=== PATIENT | male | born 1975 | race Caucasian/White ===

== ENCOUNTER 2020-03-21 14:29 | Inpatient (IN) | payer SELFPAY ==
[~2020-03-21] VITALS: Ht 175.3 cm; Wt 115.7 kg
[2020-03-21 14:51] VITALS: Ht 175.3 cm; Wt 115.7 kg
[2020-03-21 16:20] LABS: CALCIUM 8.5 mg/dL (8.5-10.1); CARBON DIOXIDE 26.6 mmol/L (21-32); CREATININE SERUM 1.4 mg/dL (0.7-1.3); POTASSIUM SERUM 4.5 mmol/L (3.5-5.1)
[2020-03-21 16:25] LABS: BILIRUBIN TOTAL 1.2 mg/dL (0.20-1.00); TOTAL PROTEIN, SERUM 6.6 g/dL (6.4-8.2)
[2020-03-21 16:34] LABS: BASOPHIL % 0.5 % (0-2); PLATELET COUNT 317 x10^3mcL (130-400); RED CELL DISTRIBUTION WIDTH 15.5 % (11.5-14.5)
[2020-03-21 17:13] LABS: microscopic required? NO
[2020-03-21 17:39] LABS: UA SPECIFIC GRAVITY >=1.030 (1.005-1.035); urine erythrocyte NEGATIVE (NEGATIVE)
[2020-03-21 17:45] LABS: C REACTIVE PROTEIN 2.5 mg/dL (<=0.9)
[2020-03-21 20:57] LABS: MAGNESIUM 2.4 mg/dL (1.8-2.4); PHOSPHOROUS 4.5 mg/dL (2.5-4.9)
[2020-03-21 21:06] LABS: T3 TOTAL 1.21 ng/mL
[2020-03-21 21:07] LABS: FREE T4 1.44 ng/dL (0.76-1.46); FREE THYROXINE INDEX 3.7 ug/dL (1.4-4.5); T4(THYROXINE) 9.6 ug/dL (4.7-13.3)
[2020-03-21 23:56] VITALS: BP 143/60
[2020-03-22 06:22] VITALS: BP 137/83
[2020-03-22 07:04] LABS: CALCIUM 8.9 mg/dL (8.5-10.1); CARBON DIOXIDE 28.9 mmol/L (21-32); CREATININE SERUM 1.5 mg/dL (0.7-1.3); MAGNESIUM 2.3 mg/dL (1.8-2.4); PHOSPHOROUS 4.4 mg/dL (2.5-4.9); POTASSIUM SERUM 4.2 mmol/L (3.5-5.1)
[2020-03-22 07:30] LABS: BASOPHIL % 0.4 % (0-2); PLATELET COUNT 328 x10^3mcL (130-400); RED CELL DISTRIBUTION WIDTH 15.6 % (11.5-14.5)
[2020-03-22 08:09] LABS: ALBUMIN 3.2 g/dL (3.4-5.0); BILIRUBIN DIRECT 0.38 mg/dL (0.0-0.2); BILIRUBIN TOTAL 1.7 mg/dL (0.20-1.00); TOTAL PROTEIN, SERUM 6.8 g/dL (6.4-8.2)
[2020-03-22 08:33] VITALS: BP 165/82
[2020-03-22 12:26] VITALS: BP 104/71
[2020-03-22 17:16] VITALS: BP 155/66
[2020-03-22 20:15] VITALS: BP 153/76
[2020-03-23 06:09] VITALS: BP 136/76
[2020-03-23 08:02] LABS: BASOPHIL % 0.5 % (0-2); PLATELET COUNT 303 x10^3mcL (130-400)
[2020-03-23 08:51] LABS: CALCIUM 8.5 mg/dL (8.5-10.1); CARBON DIOXIDE 25.2 mmol/L (21-32); CHLORIDE SERUM 102 mmol/L (98-107); CREATININE SERUM 1.3 mg/dL (0.7-1.3); GFR1 > 60 mL/min; GLUCOSE SERUM 104 mg/dL (74-106); MAGNESIUM 2.2 mg/dL (1.8-2.4); POTASSIUM SERUM 3.9 mmol/L (3.5-5.1); SODIUM SERUM 138 mmol/L (136-145)
[2020-03-23 08:52] LABS: RED CELL DISTRIBUTION WIDTH 15.6 % (11.5-14.5)
[2020-03-23 09:54] VITALS: BP 110/65
[2020-03-23 12:38] VITALS: BP 136/70
[2020-03-23 17:30] VITALS: BP 155/69
[2020-03-23 20:45] VITALS: BP 143/64
[2020-03-24 03:59] LABS: BASOPHIL % 0.5 % (0-2); PLATELET COUNT 314 x10^3mcL (130-400); RED CELL DISTRIBUTION WIDTH 15.6 % (11.5-14.5)
[2020-03-24 04:14] LABS: CALCIUM 8.4 mg/dL (8.5-10.1); CARBON DIOXIDE 31.5 mmol/L (21-32); CHLORIDE SERUM 100 mmol/L (98-107); CREATININE SERUM 1.3 mg/dL (0.7-1.3); GFR1 > 60 mL/min; GLUCOSE SERUM 118 mg/dL (74-106); MAGNESIUM 2.3 mg/dL (1.8-2.4); PHOSPHOROUS 4.1 mg/dL (2.5-4.9); POTASSIUM SERUM 3.9 mmol/L (3.5-5.1); SODIUM SERUM 136 mmol/L (136-145)
[2020-03-24 06:05] VITALS: BP 112/67
[2020-03-24 08:52] VITALS: BP 145/70
[2020-03-24 17:29] VITALS: BP 126/62
[2020-03-24 22:10] VITALS: BP 125/65
[2020-03-25 06:23] LABS: CALCIUM 8.4 mg/dL (8.5-10.1); CARBON DIOXIDE 29.4 mmol/L (21-32); CHLORIDE SERUM 99 mmol/L (98-107); CREATININE SERUM 1.3 mg/dL (0.7-1.3); GFR1 > 60 mL/min; GLUCOSE SERUM 103 mg/dL (74-106); MAGNESIUM 2.3 mg/dL (1.8-2.4); PHOSPHOROUS 3.7 mg/dL (2.5-4.9); POTASSIUM SERUM 4.1 mmol/L (3.5-5.1); SODIUM SERUM 135 mmol/L (136-145)
[2020-03-25 08:14] VITALS: BP 137/65
[2020-03-25 11:12] LABS: BASOPHIL % 0.3 % (0-2); PLATELET COUNT 311 x10^3mcL (130-400)
[2020-03-25 13:21] VITALS: BP 124/68
[2020-03-25 17:10] VITALS: BP 133/60
[2020-03-25 20:26] VITALS: BP 145/70
[2020-03-26 05:43] VITALS: BP 110/58
[2020-03-26 08:11] LABS: CALCIUM 8.3 mg/dL (8.5-10.1); CARBON DIOXIDE 29.1 mmol/L (21-32); CHLORIDE SERUM 99 mmol/L (98-107); CREATININE SERUM 1.1 mg/dL (0.7-1.3); GFR1 > 60 mL/min; GLUCOSE SERUM 119 mg/dL (74-106); MAGNESIUM 2.4 mg/dL (1.8-2.4); PHOSPHOROUS 3.2 mg/dL (2.5-4.9); POTASSIUM SERUM 3.9 mmol/L (3.5-5.1); SODIUM SERUM 137 mmol/L (136-145)
[2020-03-26 08:35] LABS: BASOPHIL % 0.3 % (0-2); PLATELET COUNT 315 x10^3mcL (130-400)
[2020-03-26 09:00] VITALS: BP 127/69
[2020-03-26 09:06] LABS: RED CELL DISTRIBUTION WIDTH 16.3 % (11.5-14.5)
[2020-03-26] MEDS ORDERED: ZES5 PO (13:15)
[2020-03-26] MEDS ORDERED: LASIX40 MG PO ×2 (13:16→13:29)
[2020-03-26] MEDS ORDERED: ISO10 PO (13:17)
[2020-03-26] MEDS ORDERED: ADULT LOW DOSE81 MG PO ×2 (13:22→13:29)
[2020-03-26] MEDS ORDERED: ZESTRIL5 MG PO (13:29)
[2020-03-26] MEDS ORDERED: ISOSORBIDE DINI10 MG PO (13:29)
[2020-03-26 13:47] VITALS: BP 109/49
[2020-03-26 14:01] VITALS: BP 109/49
[2020-03-26 14:41] VITALS: BP 113/56
== END 2020-03-26 15:05 | disposition home or self-care (01) | DRG 291 ==
LOC: ED 14:29 → DU 18:27 → MU 03-23 21:54 → DU 03-25 00:36
PROVIDERS: Emergency Medicine; Student in an Organized Health Care Education/Training Program; ADMIT Internal Medicine; ATTEND Internal Medicine
DX: I11.0 Hypertensive heart disease with heart failure (principal); J18.9 Pneumonia, unspecified organism; N17.0 Acute kidney failure with tubular necrosis; J96.01 Acute respiratory failure with hypoxia; E44.1 Mild protein-calorie malnutrition; I50.23 Acute on chronic systolic (congestive) heart failure; I42.9 Cardiomyopathy, unspecified; R74.0 Nonspecific elevation of levels of transaminase and lactic acid dehydrogenase [LDH]; I08.0 Rheumatic disorders of both mitral and aortic valves; Z20.828 Contact with and (suspected) exposure to other viral communicable diseases; Z83.3 Family history of diabetes mellitus; Z82.49 Family history of ischemic heart disease and other diseases of the circulatory system; Z80.9 Family history of malignant neoplasm, unspecified; Z68.34 Body mass index [BMI] 34.0-34.9, adult
CPT/HCPCS: 36600; 83880; 84439; 85378; 87804; C9113; G0378; J0456; J0696; J1644; J1940; J2405; Q0092; U0003-CS